=== PATIENT | male | born 1995 | race Caucasian/White ===

== ENCOUNTER 2021-07-12 10:38 | Emergency (ER) | payer OTHER ==
[~2021-07-12] VITALS: Ht 172.7 cm; Wt 77.1 kg
[~2021-07-12 10:38] MED LIST: AMITRIPTYLINE H10 M3 PO
[2021-07-12 10:59] VITALS: BP 138/61
== END 2021-07-12 12:16 | disposition home or self-care (01) ==
LOC: M.ERS 10:38
DX: T15.11XA Foreign body in conjunctival sac, right eye, initial encounter (principal); Z98.890 Other specified postprocedural states